=== PATIENT | female | born 1990 | race African-American/Black ===

== ENCOUNTER 2017-11-02 10:08 | Observation (INO) ==
[2017-11-02] MEDS ORDERED: PROMETHAZINE 25 MG/1 ML VIAL IV STA (10:31)
[2017-11-02] MEDS ORDERED: SODIUM CHLORIDE 0.9% 1,000 ML IV STA (10:31)
[2017-11-02] MEDS ORDERED: KETOROLAC 30 MG/1 ML VIAL IV STA (10:34)
[2017-11-02] MEDS ORDERED: KETOROLAC 30 MG/1 ML VIAL ONE (10:36)
[2017-11-02] MEDS ORDERED: PROMETHAZINE 25 MG/1 ML VIAL ONE (10:36)
[2017-11-02 10:48] LABS: Basophils % 0.8 % (0.0-0.8); Eosinophils % 0.8 % (0.00-10.9); Hematocrit 36.9 VOL% (35.7-47.0); Hemoglobin 12.4 GM/DL (12.0-16.0); Immature Granulocytes % 0.4 %; Immature Granulocytes Absolute 0.02 #; Lymphocytes # 1.9 10*3/uL (1.4-4.0); Lymphocytes % 35.3 % (21.3-54.2); Mean Corpuscular HGB Conc 33.6 GM/DL (32-36); Mean Corpuscular Hemoglobin 28 PG (27-34); Mean Corpuscular Volume 82.4 FL (87-102); Mean Platelet Volume 9.9 FL (9.6-12.0); Monocytes # 0.4 10*3/uL (0.11-0.8); Monocytes % 7.8 % (1.7-12.7); Neutrophils # 2.9 10*3/uL (1.4-7.4); Neutrophils % 54.9 % (38.7-73.9); Platelet Count 241 T/CUMM (130-400); Red Blood Count 4.48 MC/CUMM (3.8-5.5); Red Cell Distribution Width 13.3 % (9.3-17.3); White Blood Count 5.3 T/CUMM (4-12)
[2017-11-02] MEDS ORDERED: PROMETHAZINE 25 MG/1 ML VIAL IM STA (10:49)
[2017-11-02 11:04] LABS: Apearance,Urine Slightly Cloudy (Clear); Bilirubin,Urine 1+ mg/dL (Negative); Glucose,Urine (UA) Negative (Negative); Ketones,Urine 25 mg/dL (Negative); Nitrite,Urine Negative (Negative); Protein,Urine 100 MG/DL; Urine Color Amber (Yellow)
[2017-11-02 11:05] LABS: Blood, Urine Moderate mg/dL (Negative); Urine Urobilinogen 0.2 EU/DL (0.2-1.0)
[2017-11-02 11:16] LABS: Barbiturates Screen,Urine Negative (Negative); Benzodiazepines Screen,Urine Negative (Negative); Cannabinoid Screen,Urine Negative (Negative); Opiate Screen,Urine Negative (Negative); Phencyclidine Screen,Urine Negative (Negative)
[2017-11-02 11:23] LABS: Albumin 4.1 G/DL (3.4-5.0); Bilirubin,Total 0.4 MG/DL (0.2-1.0); Calcium 9.1 MG/DL (8.5-10.1); Osmolality,Calculated 279.5 MOS/KG (273-304); Potassium 3.6 MMOL/L (3.5-5.1); Total Protein 7.6 G/DL (6.4-8.3)
[2017-11-02 11:36] LABS: Mucus,Urine 2+ /LPF (Occasional); RBC,Urine 15-20 /HPF (0-4); Squamous Epithelial Cell,Urine Few /HPF (0-10)
[2017-11-02] MEDS ORDERED: ORPHENADRINE 60 MG/2 ML VIAL IV STA (11:38)
[2017-11-02] MEDS ORDERED: TAMSULOSIN 0.4 MG CAPSULE PO STA (11:55)
[2017-11-02] MEDS ORDERED: HYDROmorphone 2 MG/1 ML VIAL IV PRN (13:42)
[2017-11-02] MEDS ORDERED: diphenhydrAMINE 50 MG/1 ML VIAL IV PRN (13:42)
[2017-11-02] MEDS ORDERED: ONDANSETRON 4 MG/2 ML VIAL IV PRN (13:42)
[2017-11-02] MEDS: LACTATED RINGERS 1,000 ML IV SCH (15:20)
[2017-11-02] MEDS ORDERED: TAMSULOSIN 0.4 MG CAPSULE PO SCH (21:00)
[2017-11-03] MEDS: LACTATED RINGERS 1,000 ML IV SCH ×2 (03:23→07:53)
[2017-11-03 08:23] VITALS: BP 103/58
[2017-11-03 08:27] LABS: Calcium 8.1 MG/DL (8.5-10.1); Osmolality,Calculated 279.3 MOS/KG (273-304); Potassium 3.9 MMOL/L (3.5-5.1)
== END 2017-11-03 10:50 | disposition home or self-care (01) ==
LOC: N.EDINP 10:08 → N.ED 10:08 → N.4E 13:10
PROVIDERS: ADMIT Surgery; ATTEND Surgery